=== PATIENT | female | born 1995 | race Caucasian/White ===

== ENCOUNTER 2020-01-26 09:49 | Outpatient (CLI) | payer BC, SELFPAY ==
[2020-01-26] MEDS: RHO(D) IMMUNE GLOBULIN 300 MCG SYRINGE IM (13:58)
== END 2020-01-26 09:50 | disposition home or self-care (01) ==
PROVIDERS: PCP Obstetrics & Gynecology; Visit Provider Obstetrics & Gynecology
DX: Z36.89 Encounter for other specified antenatal screening (principal); Z3A.00 Weeks of gestation of pregnancy not specified
CPT/HCPCS: 36415; 85461; 90384; 96372; J2790